=== PATIENT | male | born 1960 | race Caucasian/White ===

== ENCOUNTER 2019-07-03 20:27 | Emergency (ER) | payer OTHER ==
[2014-05-27 17:06] VITALS: BP 118/68
[2019-07-03] MEDS ORDERED: BUTORPHANOL TARTRATE 1 MG/ML VIAL ONE (22:00)
[2019-07-03] MEDS ORDERED: ORPHENADRINE CITRATE 60 MG/2 ML ML ONE (22:00)
[2019-07-03] MEDS ORDERED: KETOROLAC TROMETHAMINE 30 MG/1ML VIAL ONE (22:00)
[2019-07-13 08:33] LABS: APPEARANCE,URINE CLEAR (CLEAR); COLOR,URINE YELLOW (YELLOW); OCCULT BLOOD,URINE NEGATIVE (NEGATIVE); UROBILINOGEN URINE 0.2 Eu (0.2-1.0)
--- NOTE | 2019-07-25 12:28 | Diagnostic Imaging Report ---
GILBERTO TORO ([facility]) - ER [facility] [id number] [id number] Report Submission Date: Jul 03, 2019 10:09:35 PM CDT Patient Study Name: REI BAER Date: Jul 03, 2019 9:43:36 PM CDT Modality Type: DX Gender: M Description: L SPINE 2 OR 3 VIEWS : 60 Institution: [facility] Physician: GILBERTO TORO ([facility]) - ER Lumbar spine three views History: Low back pain Findings: Atherosclerotic calcifications and minimal L3-4 disc space narrowing are observed without fracture, spondylolysis, or spondylolisthesis. Electronically signed on Jul 03, 2019 10:09:35 PM CDT by: Rodriguez MERLOS
== END 2019-07-03 22:50 ==
LOC: ED 20:27
DX: S39.012A Strain of muscle, fascia and tendon of lower back, initial encounter (principal); X50.9XXA Other and unspecified overexertion or strenuous movements or postures, initial encounter
CPT/HCPCS: 72100; 81002; 99283; J1885; J2360; S1016